=== PATIENT | female | born 1985 | race Hispanic/Latino ===

== ENCOUNTER 2020-01-13 08:40 | Day surgery (SDC) | payer BC ==
[2020-01-13 08:59] LABS: Absolute Lymphocytes (CBC) 2.9 K/uL (0.7-4.9); Basophils % 0.5 % (0-1.3); Hematocrit 39.5 % (36.0-45.0); Lymphocytes % 38.8 % (15.3-44.8); RBC Red Blood Cell Count 4.67 M/uL (3.86-4.86)
[2020-01-13] MEDS ORDERED: Ringers Lactate 1,000 ML IV ONE (09:06)
[2020-01-13] MEDS ORDERED: CEFOXITIN/SWI 1gm 1 GM/10 ML SYR ONE (09:06)
[2020-01-13 09:13] LABS: ALT/SGPT 27 U/L (12-78); AST/SGOT 15 U/L (15-37); Albumin 3.7 g/dL (3.4-5.0); Alkaline Phosphatase 58 U/L (45-117); Amylase 58 U/L (25-115); BUN Blood Urea Nitrogen 8 mg/dL (7-18); Bicarbonate 27 mmol/L (21-32); Bilirubin Direct 0.1 mg/dL (0-0.2); Bilirubin Total 0.6 mg/dL (0.2-1.0); Glucose Level 92 mg/dL (74-106); Potassium 3.6 mmol/L (3.5-5.1); Protein, Total 8.2 g/dL (6.4-8.2); Sodium Level 141 mmol/L (136-145)
[2020-01-13] MEDS ORDERED: propofoL 200 MG/20 ML VIAL IV ONE (09:40)
[2020-01-13] MEDS ORDERED: MIDAZOLAM HCL 2 MG/2 ML INJ ONE (09:40)
[2020-01-13] MEDS ORDERED: ROCURONIUM 50 MG/5 ML VIAL IV ONE (09:40)
[2020-01-13] MEDS ORDERED: FENTANYL CITR 100 MCG/2 ML ONE ×2 (09:40→10:01)
[2020-01-13] MEDS ORDERED: LIDOCAINE 1% MPF 5 ML VIAL ONE (09:40)
[2020-01-13] MEDS ORDERED: KETOROLAC 30 MG/ML INJ ONE (09:58)
[2020-01-13] MEDS ORDERED: ONDANSETRON 4 MG/2 ML VIAL ONE ×2 (09:59→10:52)
[2020-01-13] MEDS ORDERED: dexAMETHasone 10 MG/ML VIAL ONE (10:00)
[2020-01-13] MEDS: Ringers Lactate 1,000 ML IV ONE ×2 (10:06→10:29)
[2020-01-13] MEDS ORDERED: GLYCOPYRROLATE 0.2 MG/ML SYR ONE (10:28)
[2020-01-13] MEDS ORDERED: NEOSTIGMINE 1 MG/ML -5 ML ONE (10:30)
[2020-01-13] MEDS ORDERED: Mastisol Adhesive Liq ONE (10:34)
[2020-01-13] MEDS: HYDROMORPHONE HCL 2 MG/ML inj ONE ×4 (10:42→10:57)
[2020-01-13] MEDS: HYDROMORPHONE HCL 1 MG/ML INJ ONE ×2 (11:03→11:11)
[2020-01-13] MEDS: MEPERIDINE HCL 25 MG/0.5 ML ONE ×2 (11:16→11:21)
[2020-01-13 11:46] VITALS: BP 124/79; TEMP 96.8; O2SAT 95
[2020-01-13] MEDS ORDERED: HYDROCODONE/APAP 7.5/325 MG TAB ONE (12:08)
--- NOTE | 2020-01-13 13:45 | OP ---
Date of Procedure: 01/13/2020 Surgeon: Edgard Mak MD Pharmacy Director: MICHAEL Smith. Preoperative Diagnosis: Chronic cholecystitis and biliary dyskinesia. Postoperative Diagnosis: Chronic cholecystitis and biliary dyskinesia. Procedure: Laparoscopic cholecystectomy. Estimated Blood Loss: Minimal. Specimens: Gallbladder. Finding: As above. Anesthesia: General. Complications: None. Patient tolerated the procedure in stable condition, taken to Recovery in good general condition. Procedure In Detail: Patient was brought to the OR and placed in supine position. General anesthesi a begun. Patient was prepped and draped in the usual sterile fashion. Marcaine 0.5% infiltrated loc ally, 15 blade was used to make a 1 cm infraumbilical midline incision. Subcutaneous tissues were di vided. Fascia was identified and divided. #1 Vicryl stay suture was placed. Peritoneal cavity was entered with sharp and blunt dissection, 12 mm trocar was placed into the peritoneal cavity under dir ect vision. Pneumoperitoneum was established and then three 5 mm trocars were placed, 1 in the epiga strium just to the right of midline and 2 in the right subcostal region. Laparoscopy revealed chroni c cholecystitis, fundus retracted superiorly. Infundibulum was identified and retracted inferolatera lly. Cystic duct and cystic artery were clearly identified with blunt dissection. Clips were placed . Both structures were divided. Cautery was used to remove the gallbladder from the liver bed. The gallbladder was retrieved through the umbilicus via an EndoCatch bag. Bleeding of the gallbladder f zechariah controlled with cautery and then right upper quadrant was irrigated. Effluent was clear. No ev idence of bleeding or bile leakage appreciated. Subsequently, all trocars were removed under direct vision. Stay sutures were tied to each other to reapproximate the fascial defect. Subcutaneous woun ds irrigated. Bleeding controlled with cautery, 3-0 chromic used for subcutaneous tissue and close th e skin. Sterile dressing was applied. Patient was awakened and taken to Recovery in good general co ndition. Discharge Note: Patient will go to Day Surgery and home when stable. Disposition: Home. Condition: Stable. Discharge Instructions: Resume home medications and diet. Activity as tolerated. No heavy lifting. Remove outer dressing in 2 days. Shower. Keep wound clean and dry. Follow up in my office in 1 w [place]. Call for appointment. Tylenol No. 3 one tablet p.o. q.4 p.r.n. pain. Keep Steri-Strips on at all times. URSULA/VIBHA Voice ID: [id number] Report ID: [id number]
== END 2020-01-13 12:30 | disposition home or self-care (01) ==
LOC: OR 08:40
PROVIDERS: ATTEND Surgery
PROC: 0FT44ZZ Resection of Gallbladder, Percutaneous Endoscopic Approach (ICD-10-PCS; principal; 2020-01-13 10:00)
DX: K80.10 Calculus of gallbladder with chronic cholecystitis without obstruction (principal); K82.8 Other specified diseases of gallbladder; Z83.3 Family history of diabetes mellitus
CPT/HCPCS: 47562; 85025; 80048; 36415; 82150; 84703; 80076; 88304; J2704; J2250; J1170 ×2; J3010 ×2; J1100; J2175; J2710; J7120 ×2; J2405 ×2